=== PATIENT | male | born 1995 | race Caucasian/White ===

== ENCOUNTER 2017-07-13 17:33 | Emergency (ER) | payer SELFPAY ==
[2017-07-13 18:10] LABS: BILIRUBIN,URINE NEGATIVE (NEG); CLARITY,URINE CLOUDY; COLOR,URINE YELLOW; GLUCOSE,URINE NEGATIVE (NEG); NITRITE,URINE NEGATIVE (NEG); PROTEIN,URINE NEGATIVE (NEG-TRACE); UROBILINOGEN,URINE 0.2 mg/dL (0.2 mg/dL)
[2017-07-13 18:18] LABS: BACTERIA,URINE 0 /HPF (0-FEW); WBC,URINE >40 /HPF (0-4)
[2017-07-13] MEDS: metroNIDAZOLE 500 MG TABLET PO (18:37)
[2017-07-13] MEDS: AZITHROMYCIN 250 MG TABLET. PO (18:38)
[2017-07-13] MEDS: cefTRIAXone IM 250 MG VIAL IM (18:39)
== END 2017-07-13 19:00 | disposition home or self-care (01) ==
LOC: ER 17:33
DX: Z11.3 Encounter for screening for infections with a predominantly sexual mode of transmission (principal); R36.9 Urethral discharge, unspecified; R30.0 Dysuria; J45.909 Unspecified asthma, uncomplicated; F10.20 Alcohol dependence, uncomplicated; F15.10 Other stimulant abuse, uncomplicated
CPT/HCPCS: 81001; 87491; 87591; 96372; 99284-25; J0696; Q0144